=== PATIENT | female | born 1965 | race Caucasian/White ===

== ENCOUNTER 2024-01-31 12:48 | Outpatient (CLI) | payer OTHER, SELFPAY | END 2024-01-31 12:49 | disposition home or self-care (01) | PROVIDERS: PCP Obstetrics & Gynecology | DX: R00.2 Palpitations (principal) | CPT/HCPCS: 93306 ==

== ENCOUNTER 2024-05-26 18:47 | Outpatient (CLI) | payer OTHER, SELFPAY ==
--- NOTE | 2024-06-24 08:16 | W.PM.SLEEP ---
Sleep Study Details Details Interpreting Provider: Howard Date of Sleep Study: 05/26/24 Sleep Study Details: STUDY TYPE:? Home unattended ? BMI:? 26.2 ORDERING PROVIDER:? Howard INDICATION:? Concern about sleep apnea ? SLEEP SUMMARY:? 418 minutes monitored RESPIRATORY SUMMARY:? AHI 6.6, left lateral 1.0, supine 8.7 Low oxygen 89 0.1% of study oxygen less than 90% Snoring 42.8% PERIODIC LIMB MOVEMENTS OF SLEEP:? Not recorded CARDIAC:? 51-92, mean 62.7 beats per minute IMPRESSION:? Mild obstructive sleep apnea with supine position dependency RECOMMENDATION: Treatment options include positional therapy with avoidance of supine sleep, CPAP, dental appliance and/or airway expansion surgery.
== END 2024-05-26 18:48 | disposition home or self-care (01) ==
LOC: SLEEP 18:48
PROVIDERS: PCP Otolaryngology; Visit Provider Otolaryngology
DX: G47.33 Obstructive sleep apnea (adult) (pediatric) (principal)
CPT/HCPCS: 95806

== ENCOUNTER 2024-05-28 18:51 | Outpatient (CLI) | payer OTHER, SELFPAY ==
--- NOTE | 2024-05-28 19:29 | CRLHL7_ITS ---
For Patients: As a result of the 21st Century Cures Act, medical imaging exams and procedure reports are released immediately into your electronic medical record. You may view this report before your referring provider. If you have questions, please contact your health care provider. EXAM: MRI OF THE RIGHT KNEE, WITHOUT CONTRAST CLINICAL INDICATION: Knee pain. Chronic instability. PRIOR SURGERY: None reported. COMPARISON PLAIN FILMS: None available at time of interpretation. COMPARISON CROSS-SECTIONAL IMAGING STUDIES: None available at time of interpretation. TECHNICAL: Axial PD and T2 fat-sat, sagittal PD and T2 fat-sat and coronal PD and STIR noncontrast sequences right knee. 1.5 Jeana MR scanner. Knee coil. FINDINGS: OSSEOUS STRUCTURES: Chondroid lobular lesion with sharp zone of transition and no surrounding marrow edema medial femoral metaphysis with greatest diameter 14 mm consistent with an enchondroma. JOINT SPACE AND CAPSULE: Effusion: No significant joint effusion or synovitis. Joint Bodies: None seen. CRUCIATE LIGAMENTS: Anterior Cruciate Ligament: Normal. Posterior Cruciate Ligament: Normal. EXTENSOR MECHANISM: Distal Quadriceps Tendon: Normal. Patellar Tendon: Normal. Medial Patellar Retinaculum and Medial Patellofemoral Ligament: Normal. Lateral Patellar Retinaculum: Normal. Normal patellar alignment. No patella johanna. Normal trochlear depth. Normal lateral trochlear inclination. MEDIAL COLLATERAL LIGAMENT AND POSTEROMEDIAL CORNER COMPLEX: Medial Collateral Ligament: Normal. Medial Head of the Gastrocnemius and Semimembranosus Tendons: Normal. LATERAL COLLATERAL LIGAMENT COMPLEX AND POSTEROLATERAL CORNER COMPLEX: Fibular Collateral Ligament: Normal. Distal Biceps Femoris Tendon Complex: Normal. Iliotibial Band: Normal. Popliteus Tendon: Normal. Posterolateral Corner Capsule: Normal. MEDIAL COMPARTMENT: Medial Meniscus: Normal size and morphology without tear. Articular Cartilage: Mildly heterogeneous T2 signal and shallow irregular grade 2 thinning. LATERAL COMPARTMENT: Lateral Meniscus: Shallow degenerative tearing slightly blunts the free margin in the body and the undersurface of the anterior horn. Articular Cartilage: Undulating high-grade 2 to grade 3 thinning in the condyle and likely grade 3 to grade 4 cartilage loss in the mid to posterior weight-bearing plateau. Patchy sclerosis and edema in the posterior plateau and condyle. Small marginal osteophytes. PATELLOFEMORAL COMPARTMENT: Articular Cartilage: Up to grade 4 cartilage loss lateral facet with sclerosis and cysts. Grade 2 to grade 3 thinning in the upper trochlear lateral margin. PERIARTICULAR SOFT TISSUES: Popliteal Cyst: Small mostly decompressed cyst. Periarticular Cysts or Ganglia: None. Bursae: No prepatellar, superficial infrapatellar, deep infrapatellar, pes anserinus or semimembranosus/MCL bursitis. Musculature: No muscle atrophy or muscle edema. Subcutaneous and Soft Tissues: No subcutaneous or soft tissue mass, edema or fluid collection. Neurovascular Structures: Normal. IMPRESSION: 1. Shallow degenerative tearing lateral meniscus. 2. Tricompartmental osteoarthritis. 3. Benign medial femoral enchondroma. Dictated by Narciso Fitch MD @ 06/13/2024 1:32:06 PM (Electronically Signed)
== END 2024-05-28 18:52 | disposition home or self-care (01) ==
LOC: MRI 18:53
PROVIDERS: PCP Otolaryngology; Visit Provider Family Medicine Sports Medicine
DX: M25.561 Pain in right knee (principal); S83.281A Other tear of lateral meniscus, current injury, right knee, initial encounter; M17.12 Unilateral primary osteoarthritis, left knee; M23.50 Chronic instability of knee, unspecified knee; Z91.81 History of falling
CPT/HCPCS: 73721

== ENCOUNTER 2024-07-29 15:15 | Outpatient (CLI) | payer OTHER, SELFPAY | END 2024-07-29 15:16 | disposition home or self-care (01) | LOC: MAMMO 15:16 | PROVIDERS: Visit Provider Obstetrics & Gynecology | DX: Z12.31 Encounter for screening mammogram for malignant neoplasm of breast (principal); R92.333 Mammographic heterogeneous density, bilateral breasts | CPT/HCPCS: 77063; 77067 ==